=== PATIENT | female | born 1990 | race Two or more races ===

== ENCOUNTER 2018-03-23 18:43 | Emergency (ER) | payer OTHER ==
[2018-03-23 20:14] LABS: URINE HCG POC HCG POSITIVE (Negative)
[2018-03-23 20:36] LABS: BILIRUBIN,URINE NEGATIVE (NEG); CLARITY,URINE CLEAR; COLOR,URINE YELLOW; GLUCOSE,URINE NEGATIVE (NEG); NITRITE,URINE NEGATIVE (NEG); PH,URINE 6.5; PROTEIN,URINE NEGATIVE (NEG-TRACE)
[2018-03-23 20:44] LABS: ADD MAN DIFF? NO
[2018-03-23 20:46] LABS: BACTERIA,URINE FEW /HPF (0-FEW); BASO % 1 % (0-3); EOS % 1 % (0-3); HEMATOCRIT 39.9 % (36.0-47.0); HEMOGLOBIN 13.2 g/dL (12.0-15.5); LYMPH # 1.2 x10^3/uL (1.0-4.8); LYMPH % 15 % (24-48); MEAN CORPUSCULAR HEMOGLOBIN 30 pg (25-35); MEAN CORPUSCULAR HGB CONC 33 g/dL (31-37); MEAN CORPUSCULAR VOLUME 91 fL (79-100); MONO # 0.6 x10^3/uL (0.0-1.1); MONO % 7 % (0-9); NEUT # 6.3 x10^3uL (1.8-7.7); NEUT % 77 % (31-73); PLATELET COUNT 236 x10^3/uL (140-400); RBC,URINE 0 /HPF (0-2); RED BLOOD COUNT 4.41 x10^6/uL (3.50-5.40); RED CELL DISTRIBUTION WIDTH 13.3 % (11.5-14.5); SQUAMOUS EPITHELIAL CELL,UR FEW /LPF; WHITE BLOOD COUNT 8.1 x10^3/uL (4.0-11.0)
[2018-03-23] MEDS: IV NORMAL SALINE 1000ML BAG 1,000 ML IV (20:49)
[2018-03-23] MEDS: LIDO:MAALOX 1:1 20 ML SINGLE DOSE. SWSW (20:50)
[2018-03-23 20:54] LABS: ANION GAP 8 (6-14); BLOOD UREA NITROGEN 7 mg/dL (7-20); BUN/CREATININE RATIO 10 (6-20); CALCIUM 9.4 mg/dL (8.5-10.1); CARBON DIOXIDE 29 mmol/L (21-32); CHLORIDE 104 mmol/L (98-107); CREATININE 0.7 mg/dL (0.6-1.0); GFR 100.4; GLUCOSE 105 mg/dL (70-99); POTASSIUM 3.9 mmol/L (3.5-5.1); SODIUM 141 mmol/L (136-145)
[2018-03-23 21:01] LABS: ALBUMIN 4.2 g/dL (3.4-5.0); ALBUMIN/GLOBULIN RATIO 0.9 (1.0-1.7); ALK PHOS 84 U/L (46-116); ALT (SGPT) 92 U/L (14-59); AST (SGOT) 111 U/L (15-37); LIPASE 233 U/L (73-393); TOTAL BILIRUBIN 0.5 mg/dL (0.2-1.0)
== END 2018-03-23 21:54 | disposition home or self-care (01) ==
LOC: ER 18:43
DX: N39.0 Urinary tract infection, site not specified (principal); K80.70 Calculus of gallbladder and bile duct without cholecystitis without obstruction
CPT/HCPCS: 36415; 76705; 80053; 81001; 81025; 83690; 85025; 87086; 99284; J7030

== ENCOUNTER 2018-04-12 08:39 | Day surgery (SDC) | payer OTHER ==
[~2018-04-12 08:39] MED LIST: IOHEXOL 300 MG/ML 100ML VIAL.; LIDOCAINE 1% PF 2 ML VIAL. ID; MORPHINE SULFATE 2 MG/ML DISP.SYRIN. IV; ONDANSETRON PF 4 MG/2 ML VIAL. IV; SURGICEL HEMOSTAT 4X8 EACH.; fentaNYL PF VIAL 100 MCG/2 ML VIAL IV
[2018-04-12 09:14] LABS: NEG OBC UR NEG; POS OBC UR POS; U PREG PATIENT NEGATIVE (NEG)
[2018-04-12] MEDS: IV RINGERS,LACTATED 1000ML 1,000 ML IV (09:17)
[2018-04-12] MEDS ORDERED: MIDAZOLAM HCL/PF 2 MG/2 ML VIAL. (09:58)
[2018-04-12] MEDS ORDERED: LIDOCAINE 2% PF Vial for OR 5 ML VIAL. (09:58)
[2018-04-12] MEDS ORDERED: PROPOFOL 20 ML IV (09:58)
[2018-04-12] MEDS ORDERED: ONDANSETRON PF 4 MG/2 ML VIAL. (09:58)
[2018-04-12] MEDS ORDERED: fentaNYL PF VIAL 100 MCG/2 ML VIAL ×2 (09:58→11:26)
[2018-04-12] MEDS ORDERED: DEXAMETHASONE SOD PHOS 20 MG/5 ML VIAL. (09:58)
[2018-04-12] MEDS ORDERED: FAMOTIDINE 20 MG/2 ML VIAL (10:00)
[2018-04-12] MEDS ORDERED: ROCURONIUM 50 MG/5 ML VIAL. (10:00)
[2018-04-12] MEDS: BUPIVACAINE-EPI 0.25%-1:200000 50 ML VIAL. (11:15)
[2018-04-12] MEDS ORDERED: NEOSTIGMINE 10 MG/10 ML VIAL. (11:23)
[2018-04-12] MEDS ORDERED: GLYCOPYRROLATE 1 MG/5 ML VIAL. (11:23)
[2018-04-12] MEDS ORDERED: KETOROLAC 30 MG/ML INJ FOR OR. INJ (11:23)
[2018-04-12] MEDS ORDERED: DESFLURANE 31 TO 60 MINUTES IH (11:24)
[2018-04-12] MEDS ORDERED: ceFAZolin 2GM PREMIX 2 GM/50 ML BAG IV (12:00)
[2018-04-12] MEDS: fentaNYL PF VIAL 100 MCG/2 ML VIAL IV ×2 (12:08→12:14)
[2018-04-12] MEDS: PROCHLORPERAZINE 10 MG/2 ML VIAL. IV (12:09)
[2018-04-12] MEDS: oxyCODONE/APAP 5/325 1 TAB TABLET PO (12:35)
== END 2018-04-12 13:24 | disposition home or self-care (01) ==
LOC: SURG 08:39
DX: K80.10 Calculus of gallbladder with chronic cholecystitis without obstruction (principal); Z79.899 Other long term (current) drug therapy; Z87.440 Personal history of urinary (tract) infections; F41.9 Anxiety disorder, unspecified; Z72.89 Other problems related to lifestyle
CPT/HCPCS: 47562; 81025; 88304; A7015; J0690; J0780; J1100; J1885; J2250; J2405; J2704; J2710; J3010; J3490; J7030; J7120; Q9967; S0028